=== PATIENT | female | born 1960 | race African-American/Black ===

== ENCOUNTER → 2020-06-16 | Outpatient (CLI) | payer MEDICARE, MEDICAID ==
[~2020-06-16] MED LIST: AMLO10TA4 PO; ASPI-1497 PO; ATIVAN; ATOR20TA65 PO; CARI350T27 PO; COLACE; DOCU-138 PO; FERR142T6 PO; HYDR-519 PO; HYDR12.529 PO; MULT-1116 PO; NITR0.4T49; NORVASC; PROT40 PO; SIMV5TAB58 PO; SUCR1TAB30 PO; ZOCOR
[2020-06-16 15:38] LABS: BASOPHILS % 1.1 % (0.0-2.0); HEMATOCRIT. 34.1 % (36.0-48.0); HEMOGLOBIN. 10.8 g/dL (12.0-16.0); MEAN CORPUSCULAR HEMOGLOBIN 22.1 pg (28.0-32.0); MEAN CORPUSCULAR VOLUME 69.4 fL (81.0-99.0); MEAN PLATELET VOLUME 8.4 fl (7.4-10.4); NEUTROPHILS % 43.9 % (40.0-76.0); PLATELET 224 x1000/uL (130-400); RED BLOOD CELL COUNT 4.92 mill/uL (4.2-5.4); RED CELL DISTRIBUTION WIDTH 15.7 % (11.6-14.6)
[2020-06-16 15:42] LABS: CLARITY URINE CLEAR (CLEAR); COLOR URINE DARK YELLOW (YELLOW); KETONES URINE 1+ (NEGATIVE); LEUKOCYTE ESTERASE URINE TRACE (NEGATIVE); NITRITE URINE NEGATIVE (NEGATIVE); OCCULT BLOOD URINE NEGATIVE (NEGATIVE); PH URINE 5.5 (4.5-8.0); PROTEIN URINE NEGATIVE (NEGATIVE); SPECIFIC GRAVITY URINE 1.022 (1.005-1.030)
[2020-06-16 15:50] LABS: PARTIAL THROMBOPLASTIN TIME 25.7 sec (23.4-31.0); PROTHROMBIN TIME 10.9 sec (9.6-11.0)
[2020-06-16 16:19] LABS: PLATELET ESTIMATE NORMAL
[2020-06-16 16:33] LABS: CHLORIDE 106 mEq/L (98-107)
== END | disposition home or self-care (01) ==
LOC: LAB 14:46
PROVIDERS: ATTEND Orthopaedic Surgery
DX: Z01.812 Encounter for preprocedural laboratory examination (principal)
CPT/HCPCS: 36415; 80053; 81003; 85025

== ENCOUNTER → 2020-06-26 | Outpatient (CLI) | payer MEDICARE, MEDICAID | END | disposition home or self-care (01) | LOC: LAB 08:15 | PROVIDERS: ATTEND Orthopaedic Surgery | DX: Z01.812 Encounter for preprocedural laboratory examination (principal); Z20.822 Contact with and (suspected) exposure to COVID-19 | CPT/HCPCS: 87426 ==

== ENCOUNTER → 2020-06-27 | Day surgery (SDC) | payer MEDICARE, MEDICAID ==
[~2020-06-27] VITALS: Ht 167.6 cm; Wt 84.8 kg
[~2020-06-27] MED LIST changes: -ASPI-1497 PO; -ATIVAN; +BUPIVACAINE HCL/PF 0.25% (2.5MG/ML) 10ML ONE; +CEFAZOLIN SODIUM 1000MG/VIAL ONE; -COLACE; -DOCU-138 PO; +EPINEPHRINE 1:1000 1 MG/ML AMP ONE; +FENTANYL CITRATE/PF 50MCG/ML 2ML VIAL ONE; -FERR142T6 PO; +HYDROCODONE/ACETAMINOPHEN 5/325MG TABLET PO PRN; +HYDROMORPHONE HCL/PF 2MG/ML CPJ IV PRN; +KETOROLAC 30MG/ML VIAL ONE; +LACTATED RINGERS 1,000 ML IV SCH; +LIDOCAINE HCL 2% JELLY 5ML ONE; +MEPERIDINE HCL/PF 25MG/ML CPJ IV PRN; +METOCLOPRAMIDE HCL 10MG/2ML VIAL ONE; +MIDAZOLAM HCL 2 MG/2 ML VIAL ONE; +MORPHINE SULFATE 2 MG/ML CPJ (NOT FOR IM USE) IV PRN; +MORPHINE SULFATE/PF 1MG/ML 10ML AMP ONE; -NITR0.4T49; -NORVASC; +ONDANSETRON HCL 4MG/2ML INJ IV PRN; +ONDANSETRON HCL 4MG/2ML INJ ONE; +POLYMYXIN B SULFATE 500000 UNITS/VIAL ONE; +PROPOFOL 200MG/20ML VIAL IV ONE; -PROT40 PO; -SIMV5TAB58 PO; +SODIUM CHLORIDE 0.9% 1,000 ML IV ONE; -SUCR1TAB30 PO; -ZOCOR
[2020-06-27 10:48] VITALS: BP 133/95
== END | disposition home or self-care (01) ==
LOC: OR 06:15
PROVIDERS: ATTEND Orthopaedic Surgery
DX: S83.271A Complex tear of lateral meniscus, current injury, right knee, initial encounter (principal); M22.41 Chondromalacia patellae, right knee; I10 Essential (primary) hypertension; E78.00 Pure hypercholesterolemia, unspecified; Z79.899 Other long term (current) drug therapy; Z98.890 Other specified postprocedural states; Z88.1 Allergy status to other antibiotic agents; X58.XXXA Exposure to other specified factors, initial encounter; Y93.89 Activity, other specified; Y92.89 Other specified places as the place of occurrence of the external cause; Y99.8 Other external cause status
CPT/HCPCS: 29881; 88305; 88311; C1725; C2618; J0690; J2250; J2274; J2405; J2704; J2765; J3010; J3490; J1885